=== PATIENT | male | born 1960 | race African-American/Black ===

== ENCOUNTER 2018-11-13 23:34 | Emergency (ER) | payer SELFPAY ==
[~2018-11-13] VITALS: Ht 175.3 cm; Wt 84.0 kg
[2018-11-13 23:47] VITALS: BP 141/82
== END 2018-11-14 03:47 | disposition left against medical advice (07) ==
LOC: ER 23:34
DX: Z53.21 Procedure and treatment not carried out due to patient leaving prior to being seen by health care provider (principal); R07.89 Other chest pain
CPT/HCPCS: 93005